=== PATIENT | female | born 1990 | race African-American/Black ===

== ENCOUNTER 2018-03-19 18:39 | Observation (INO) | payer MEDICAID ==
[~2018-03-19] VITALS: Ht 167.6 cm; Wt 59.0 kg
[2018-03-19 20:30] LABS: CLARITY URINE TURBID (CLEAR); COLOR URINE YELLOW (YELLOW); KETONES URINE NEGATIVE (NEGATIVE); LEUKOCYTE ESTERASE URINE NEGATIVE (NEGATIVE); NITRITE URINE NEGATIVE (NEGATIVE); OCCULT BLOOD URINE NEGATIVE (NEGATIVE); PROTEIN URINE NEGATIVE (NEGATIVE); SPECIFIC GRAVITY URINE 1.017 (1.005-1.030)
[2018-03-19] MEDS ORDERED: ACETAMINOPHEN 500MG TABLET PO NR (21:23)
[2018-03-19] MEDS ORDERED: FOLI-43 PO (21:43)
[2018-03-19] MEDS ORDERED: PNV1TABL50 PO (21:43)
[2018-03-19] MEDS ORDERED: FERR325T23 GT (21:43)
== END 2018-03-19 22:00 | disposition home or self-care (01) ==
LOC: L&D 18:39
PROVIDERS: ADMIT Obstetrics & Gynecology; ATTEND Obstetrics & Gynecology
DX: O26.892 Other specified pregnancy related conditions, second trimester (principal); R10.30 Lower abdominal pain, unspecified; M54.9 Dorsalgia, unspecified; Z3A.25 25 weeks gestation of pregnancy
CPT/HCPCS: 81003; 99281; G0378

== ENCOUNTER 2018-06-16 11:24 | Inpatient (IN) | payer MEDICAID ==
[~2018-06-16] VITALS: Ht 170.2 cm; Wt 2.9 kg
[~2018-06-16 11:24] MED LIST: FERR325T23 GT; FOLI-43 PO; PNV1TABL50 PO
[2018-06-16] MEDS ORDERED: DEXT 5%/LR + PITOCIN 20UNITS/L 1,000 ML IV SCH ×2 (11:48→21:22)
[2018-06-16] MEDS ORDERED: METHYLERGONOVINE MALEATE 0.2 MG/ML IM PRN (12:00)
[2018-06-16] MEDS ORDERED: PENICILLIN G POTASSIUM 5 MMU in DEXT 5% WATER 100 ML IV SCH (12:00)
[2018-06-16] MEDS ORDERED: NALOXONE HCL 0.4 MG/ML 1ML VIAL IM PRN (12:00)
[2018-06-16] MEDS ORDERED: CARBOPROST TROMETHAMINE 250 MCG/ML AMPUL IM PRN (12:00)
[2018-06-16] MEDS ORDERED: LIDOCAINE HCL 1% 20ML VIAL (Pyxis) INJ INFIL SCH (12:00)
[2018-06-16 12:37] LABS: HEMATOCRIT. 30.4 % (36.0-48.0); HEMOGLOBIN. 10.1 g/dL (12.0-16.0); MEAN CORPUSCULAR HEMOGLOBIN 27.8 pg (28.0-32.0); MEAN CORPUSCULAR VOLUME 83.6 fL (81.0-99.0); MEAN PLATELET VOLUME 9.1 fl (7.4-10.4); PLATELET 177 x1000/uL (130-400); RED BLOOD CELL COUNT 3.64 mill/uL (4.2-5.4); RED CELL DISTRIBUTION WIDTH 13.8 % (11.6-14.6)
[2018-06-16 12:46] LABS: INR 0.9; PARTIAL THROMBOPLASTIN TIME 26.2 sec (23.4-31.0); PROTHROMBIN TIME 9.4 sec (9.1-11.1)
[2018-06-16] MEDS: LACTATED RINGERS 1,000 ML IV SCH ×2 (12:49→17:24)
[2018-06-16 13:00] LABS: PLATELET ESTIMATE NORMAL
[2018-06-16 13:03] LABS: CHLORIDE 108 mEq/L (98-107)
[2018-06-16 13:08] LABS: CLARITY URINE CLEAR (CLEAR); COLOR URINE YELLOW (YELLOW); KETONES URINE NEGATIVE (NEGATIVE); LEUKOCYTE ESTERASE URINE 2+ (NEGATIVE); NITRITE URINE NEGATIVE (NEGATIVE); OCCULT BLOOD URINE TRACE (NEGATIVE); PH URINE 6.5 (4.5-8.0); PROTEIN URINE NEGATIVE (NEGATIVE); SPECIFIC GRAVITY URINE 1.018 (1.005-1.030)
[2018-06-16 13:44] LABS: *AMPHETAMINES SCREEN URINE NEGATIVE (NEGATIVE)
[2018-06-16 13:45] LABS: *BARBITURATES SCREEN URINE NEGATIVE (NEGATIVE); *BENZODIAZEPINES SCREEN URINE NEGATIVE (NEGATIVE); *COCAINE SCREEN URINE NEGATIVE (NEGATIVE); METHADONE URINE SCREEN NEGATIVE (NEGATIVE); OPIATES URINE SCREEN NEGATIVE (NEGATIVE); PHENCYCLIDINE URINE SCREEN NEGATIVE (NEGATIVE)
[2018-06-16 13:46] LABS: CANNABINOID URINE SCREEN NEGATIVE (NEGATIVE)
[2018-06-16 14:06] LABS: HEPATITIS B SURFACE ANTIGEN NEGATIVE
[2018-06-16] MEDS ORDERED: PENICILLIN G POTASSIUM 2.5 MMU in DEXTROSE 5% WATER 50 ML IV SCH (16:00)
[2018-06-16] MEDS: BUTORPHANOL TARTRATE 2 MG/ML VIAL IV PRN ×2 (17:09→20:14)
[2018-06-16] MEDS ORDERED: BISACODYL 10MG SUPP PR PRN (21:30)
[2018-06-16] MEDS ORDERED: IBUPROFEN 400MG TABLET PO PRN (21:30)
[2018-06-16] MEDS ORDERED: GLYCERIN/WITCH HAZEL LEAF MEDICATED PAD TOP PRN (21:30)
[2018-06-16] MEDS ORDERED: OXYCODONE HCL/ACETAMINOPHEN 5/325MG TABLET PO PRN (21:30)
[2018-06-16] MEDS ORDERED: DIPHENHYDRAMINE 25MG CAPSULE PO PRN (21:30)
[2018-06-16] MEDS ORDERED: HEMORRHOIDAL SUPP PR PRN (21:30)
[2018-06-16] MEDS ORDERED: RHO(D) IMMUNE GLOBULIN 300 MCG/SYR IM PRN (21:30)
[2018-06-16 23:00] VITALS: BP 117/54
[2018-06-16 23:30] VITALS: BP 107/68
[2018-06-17] VITALS: BP 110/68
[2018-06-17 03:07] VITALS: BP 113/74
[2018-06-17] MEDS: BENZOCAINE/LANOLIN/ALOE VERA SPRAY TOP PRN (03:11)
[2018-06-17] MEDS: ACETAMINOPHEN WITH CODEINE 300/30MG TABLET PO PRN ×2 (03:11→18:42)
[2018-06-17] MEDS ORDERED: SIMETHICONE 80MG TABLET CHEW PO SCH (08:00)
[2018-06-17 08:30] VITALS: BP 108/82
[2018-06-17] MEDS ORDERED: PRENATAL VIT/FE FUMARATE/FA TABLET PO SCH (09:00)
[2018-06-17 09:26] LABS: BASOPHILS % 0.3 % (0.0-2.0); EOSINOPHILS % 0.3 % (0.0-5.0); HEMATOCRIT. 29.3 % (36.0-48.0); HEMOGLOBIN. 9.9 g/dL (12.0-16.0); LYMPHOCYTES % 15.7 % (20.0-50.0); MEAN CORPUSCULAR HEMOGLOBIN 28.4 pg (28.0-32.0); MEAN CORPUSCULAR VOLUME 83.6 fL (81.0-99.0); MONOCYTES % 7.6 % (2.0-8.0); NEUTROPHILS % 76.1 % (40.0-76.0); PLATELET 154 x1000/uL (130-400); RED CELL DISTRIBUTION WIDTH 13.5 % (11.6-14.6)
[2018-06-17] MEDS ORDERED: MEASLES,MUMPS&RUBELLA VACCINE 1 VIAL SUBCUT ONE (16:00)
[2018-06-17] MEDS ORDERED: MEDROXYPROGESTERONE ACETATE 150MG/ML VIAL IM NR (17:00)
[2018-06-17 17:36] VITALS: BP 117/75
[2018-06-17] MEDS ORDERED: DOCUSATE SODIUM 100MG CAPSULE PO SCH (21:00)
[2018-06-17 21:45] VITALS: BP 109/70
[2018-06-18 04:00] VITALS: BP 108/70
[2018-06-18] MEDS: ACETAMINOPHEN WITH CODEINE 300/30MG TABLET PO PRN ×2 (04:31→11:12)
[2018-06-18 08:15] VITALS: BP 101/70
[2018-06-18 11:12] VITALS: BP 101/70
[2018-06-18] MEDS: BENZOCAINE/LANOLIN/ALOE VERA SPRAY TOP PRN (11:51)
== END 2018-06-18 12:10 | disposition home or self-care (01) | DRG 542 ==
LOC: L&D 11:24 → OBSVTOIN 11:24 → 8 EST LDRP 11:46 → 8EST 23:00
PROVIDERS: ADMIT Obstetrics & Gynecology; ATTEND Obstetrics & Gynecology
PROC: 10E0XZZ Delivery of Products of Conception, External Approach (ICD-10-PCS; principal; 2018-06-16)
PROC: 0DQR0ZZ Repair Anal Sphincter, Open Approach (ICD-10-PCS; 2018-06-16)
PROC: 3E0R3BZ Introduction of Anesthetic Agent into Spinal Canal, Percutaneous Approach (ICD-10-PCS; 2018-06-16)
PROC: 00HU33Z Insertion of Infusion Device into Spinal Canal, Percutaneous Approach (ICD-10-PCS; 2018-06-16)
DX: O70.20 Third degree perineal laceration during delivery, unspecified (principal); D64.9 Anemia, unspecified; Z37.0 Single live birth; Z3A.40 40 weeks gestation of pregnancy; O90.81 Anemia of the puerperium
CPT/HCPCS: 36415; 76805; 80305; 86592; 86703; 86762; 86850; 86900; 87340; 90707; 99281; J0595; J1050; J2310; J2540; J2590; J3490; J7060; J7120

== ENCOUNTER 2019-02-20 17:13 | Emergency (ER) | payer MEDICAID ==
[~2019-02-20] VITALS: Ht 170.2 cm; Wt 67.0 kg
[2019-02-20 19:09] LABS: BASOPHILS % 0.2 % (0.0-2.0); HEMATOCRIT. 33.8 % (36.0-48.0); HEMOGLOBIN. 11.6 g/dL (12.0-16.0); LYMPHOCYTES % 20.2 % (20.0-50.0); MEAN CORPUSCULAR HEMOGLOBIN 28.6 pg (28.0-32.0); MEAN CORPUSCULAR VOLUME 83.1 fL (81.0-99.0); MEAN PLATELET VOLUME 8.8 fl (7.4-10.4); MONOCYTES % 7.1 % (2.0-8.0); NEUTROPHILS % 71.5 % (40.0-76.0); PLATELET 215 x1000/uL (130-400); RED BLOOD CELL COUNT 4.07 mill/uL (4.2-5.4); RED CELL DISTRIBUTION WIDTH 14.8 % (11.6-14.6)
[2019-02-20 19:10] LABS: CLARITY URINE CLEAR (CLEAR); COLOR URINE YELLOW (YELLOW); KETONES URINE TRACE (NEGATIVE); LEUKOCYTE ESTERASE URINE 2+ (NEGATIVE); NITRITE URINE NEGATIVE (NEGATIVE); OCCULT BLOOD URINE NEGATIVE (NEGATIVE); PROTEIN URINE NEGATIVE (NEGATIVE); SPECIFIC GRAVITY URINE 1.033 (1.005-1.030)
[2019-02-20 19:12] LABS: CHLORIDE 104 mEq/L (98-107)
[2019-02-20 19:35] LABS: B-HCG QUANTITATIVE 24171 mIU/mL (<3)
[2019-02-20] MEDS ORDERED: POTASSIUM CHLORIDE 20MEQ TABLET SR PO ONE (20:00)
[2019-02-20] MEDS ORDERED: NITROFURANTOIN 100MG M/M CAPSULE PO ONE (20:00)
[2019-02-20 21:30] VITALS: BP 101/63
[2019-02-20] MEDS ORDERED: ACETAMINOPHEN 325MG TABLET PO ONE (21:45)
== END 2019-02-20 21:52 | disposition home or self-care (01) ==
LOC: ER 17:13
DX: O20.0 Threatened abortion (principal); O23.12 Infections of bladder in pregnancy, second trimester; O99.012 Anemia complicating pregnancy, second trimester; D64.9 Anemia, unspecified; O26.892 Other specified pregnancy related conditions, second trimester; E87.6 Hypokalemia; Z3A.19 19 weeks gestation of pregnancy
CPT/HCPCS: 36415; 76830; 76856; 81003; 81025; 84702; 86850; 86900; 99284

== ENCOUNTER 2019-04-21 11:52 | Observation (INO) | payer MEDICAID ==
[~2019-04-21] VITALS: Ht 170.2 cm; Wt 69.9 kg
[2019-04-21 12:23] LABS: CLARITY URINE CLEAR (CLEAR); COLOR URINE YELLOW (YELLOW); KETONES URINE NEGATIVE (NEGATIVE); LEUKOCYTE ESTERASE URINE 2+ (NEGATIVE); NITRITE URINE NEGATIVE (NEGATIVE); OCCULT BLOOD URINE NEGATIVE (NEGATIVE); PROTEIN URINE NEGATIVE (NEGATIVE); SPECIFIC GRAVITY URINE 1.007 (1.005-1.030); UROBILINOGEN URINE 0.2 E.U./dL (0.2-1.0)
== END 2019-04-21 14:40 | disposition home or self-care (01) ==
LOC: 8 EST LDRP 11:52
PROVIDERS: ADMIT Obstetrics & Gynecology; ATTEND Obstetrics & Gynecology
DX: O26.893 Other specified pregnancy related conditions, third trimester (principal); R10.9 Unspecified abdominal pain; Z3A.30 30 weeks gestation of pregnancy
CPT/HCPCS: 76805; 76818; 81003; 99281; G0378

== ENCOUNTER 2019-05-04 23:07 | Inpatient (IN) | payer MEDICAID ==
[~2019-05-04] VITALS: Ht 170.2 cm; Wt 69.9 kg
[2019-05-04] MEDS ORDERED: MAGNESIUM 20 G PREMIX (L & D) 500 ML IV SCH (23:30)
[2019-05-04] MEDS: LACTATED RINGERS 1,000 ML IV SCH (23:45)
[2019-05-04] MEDS ORDERED: AMPICILLIN 2,000 MG in SODIUM CHLORIDE 0.9% 100 ML IV NR (23:45)
[2019-05-04] MEDS ORDERED: BETAMETHASONE ACET/BETAMET 30 MG/5 ML VIAL IM ONE (23:45)
[2019-05-05] MEDS: MAGNESIUM 4 G PREMIX 100 ML IV NR ×3 (00:32→01:47)
[2019-05-05] MEDS: MAGNESIUM SULFATE 20 GM in DEXT 5% WATER 460 ML IV SCH ×3 (00:32→23:19)
[2019-05-05 01:22] LABS: BASOPHILS % 0.2 % (0.0-2.0); EOSINOPHILS % 0.3 % (0.0-5.0); HEMATOCRIT. 28.7 % (36.0-48.0); LYMPHOCYTES % 36.2 % (20.0-50.0); MEAN CORPUSCULAR HEMOGLOBIN 28.1 pg (28.0-32.0); MEAN CORPUSCULAR VOLUME 80.9 fL (81.0-99.0); MEAN PLATELET VOLUME 8.1 fl (7.4-10.4); NEUTROPHILS % 56.3 % (40.0-76.0); PLATELET 258 x1000/uL (130-400); RED BLOOD CELL COUNT 3.55 mill/uL (4.2-5.4); RED CELL DISTRIBUTION WIDTH 13.1 % (11.6-14.6)
[2019-05-05 01:23] LABS: CHLORIDE 109 mEq/L (98-107)
[2019-05-05 01:26] LABS: INR 0.9; PARTIAL THROMBOPLASTIN TIME 27.5 sec (23.4-31.0); PROTHROMBIN TIME 9.7 sec (9.6-11.0)
[2019-05-05 01:31] LABS: CLARITY URINE CLEAR (CLEAR); COLOR URINE YELLOW (YELLOW); KETONES URINE NEGATIVE (NEGATIVE); LEUKOCYTE ESTERASE URINE NEGATIVE (NEGATIVE); NITRITE URINE NEGATIVE (NEGATIVE); OCCULT BLOOD URINE NEGATIVE (NEGATIVE); PROTEIN URINE NEGATIVE (NEGATIVE); SPECIFIC GRAVITY URINE 1.025 (1.005-1.030)
[2019-05-05] MEDS: LACTATED RINGERS 1,000 ML IV SCH (01:42)
[2019-05-05 02:04] LABS: *BARBITURATES SCREEN URINE NEGATIVE (NEGATIVE); *BENZODIAZEPINES SCREEN URINE NEGATIVE (NEGATIVE); *COCAINE SCREEN URINE NEGATIVE (NEGATIVE)
[2019-05-05 02:05] LABS: *AMPHETAMINES SCREEN URINE NEGATIVE (NEGATIVE); CANNABINOID URINE SCREEN NEGATIVE (NEGATIVE); METHADONE URINE SCREEN NEGATIVE (NEGATIVE); OPIATES URINE SCREEN NEGATIVE (NEGATIVE); PHENCYCLIDINE URINE SCREEN NEGATIVE (NEGATIVE)
[2019-05-05 02:36] LABS: HEPATITIS B SURFACE ANTIGEN NEGATIVE
[2019-05-05] MEDS: AMPICILLIN 2,000 MG in SODIUM CHLORIDE 0.9% 100 ML IV SCH ×3 (06:27→18:36)
[2019-05-06] MEDS ORDERED: BETAMETHASONE ACET/BETAMET 30 MG/5 ML VIAL IM NR (00:15)
[2019-05-06] MEDS: AMPICILLIN 2,000 MG in SODIUM CHLORIDE 0.9% 100 ML IV SCH ×2 (01:12→07:13)
[2019-07-14] MEDS ORDERED: IBUP-2030 PO (06:30)
== END 2019-05-06 11:30 | disposition home or self-care (01) | DRG 563 ==
LOC: OBSVTOIN 23:07 → 8 EST LDRP 23:07
PROVIDERS: ADMIT Obstetrics & Gynecology; ATTEND Obstetrics & Gynecology
DX: O60.03 Preterm labor without delivery, third trimester (principal); Z3A.29 29 weeks gestation of pregnancy
CPT/HCPCS: 36415; 80053; 80305; 81003; 83735; 85025; 86592; 86703; 86762; 86850; 86900; 87340; 96360; 96372; 99281; G0378; J0290; J0702; J3475; J7050; J7060; J7120; A4315

== ENCOUNTER 2019-05-11 09:10 | Observation (INO) | payer MEDICAID ==
[~2019-05-11] VITALS: Ht 170.2 cm; Wt 68.9 kg
[2019-05-11] MEDS ORDERED: LACTATED RINGERS 1,000 ML IV SCH (09:30)
[2019-05-11] MEDS ORDERED: PNV1TABL76 MT (11:30)
== END 2019-05-11 12:00 | disposition home or self-care (01) ==
LOC: 8 EST LDRP 09:10
PROVIDERS: ADMIT Obstetrics & Gynecology; ATTEND Obstetrics & Gynecology
DX: O62.9 Abnormality of forces of labor, unspecified (principal); Z3A.30 30 weeks gestation of pregnancy
CPT/HCPCS: 99281; G0378; 96360; 96361

== ENCOUNTER 2019-05-13 14:04 | Observation (INO) | payer MEDICAID ==
[~2019-05-13] VITALS: Ht 170.2 cm; Wt 69.4 kg
[~2019-05-13 14:04] MED LIST changes: -FERR325T23 GT; -FOLI-43 PO; -PNV1TABL50 PO; +PNV1TABL76 MT
[2019-05-13 15:58] LABS: CHLORIDE 107 mEq/L (98-107)
== END 2019-05-13 17:30 | disposition home or self-care (01) ==
LOC: 8 EST LDRP 14:04
PROVIDERS: ADMIT Obstetrics & Gynecology; ATTEND Obstetrics & Gynecology
DX: O62.9 Abnormality of forces of labor, unspecified (principal); Z3A.30 30 weeks gestation of pregnancy
CPT/HCPCS: 36415; 80048; 99281; G0378

== ENCOUNTER 2019-06-26 10:04 | Observation (INO) | payer MEDICAID ==
[~2019-06-26] VITALS: Ht 170.2 cm; Wt 72.6 kg
[2019-06-26] MEDS ORDERED: LACTATED RINGERS 1,000 ML IV SCH (10:30)
[2019-06-26 11:05] LABS: CLARITY URINE CLEAR (CLEAR); COLOR URINE YELLOW (YELLOW); KETONES URINE NEGATIVE (NEGATIVE); LEUKOCYTE ESTERASE URINE 1+ (NEGATIVE); NITRITE URINE NEGATIVE (NEGATIVE); OCCULT BLOOD URINE NEGATIVE (NEGATIVE); PROTEIN URINE NEGATIVE (NEGATIVE); SPECIFIC GRAVITY URINE 1.012 (1.005-1.030)
== END 2019-06-26 13:30 | disposition home or self-care (01) ==
LOC: 8 EST LDRP 10:04
PROVIDERS: ADMIT Obstetrics & Gynecology; ATTEND Obstetrics & Gynecology
DX: O26.893 Other specified pregnancy related conditions, third trimester (principal); R10.30 Lower abdominal pain, unspecified; R10.2 Pelvic and perineal pain; Z3A.37 37 weeks gestation of pregnancy
CPT/HCPCS: 76815; 76818; 81003; 99281; G0378; 96360; 96361

== ENCOUNTER 2019-07-12 00:15 | Inpatient (IN) | payer MEDICAID ==
[~2019-07-12] VITALS: Ht 170.2 cm; Wt 74.4 kg
[2019-07-12] MEDS ORDERED: LACTATED RINGERS 1,000 ML IV SCH (00:33)
[2019-07-12] MEDS ORDERED: LIDOCAINE HCL 1% 20ML VIAL (Pyxis) INJ INFIL SCH (00:45)
[2019-07-12] MEDS ORDERED: BUTORPHANOL TARTRATE 2 MG/ML VIAL IV PRN (00:45)
[2019-07-12] MEDS ORDERED: MISOPROSTOL 100MCG TABLET VG SCH (00:45)
[2019-07-12] MEDS ORDERED: DEXT 5%/LR + PITOCIN 20UNITS/L 1,000 ML IV SCH ×2 (01:00→03:00)
[2019-07-12] MEDS ORDERED: PENICILLIN G POTASSIUM 5 MMU in DEXT 5% WATER 100 ML IV SCH (01:00)
[2019-07-12 01:10] LABS: INR 0.9; PARTIAL THROMBOPLASTIN TIME 21.5 sec (23.4-31.0); PROTHROMBIN TIME 9.5 sec (9.6-11.0)
[2019-07-12 01:36] LABS: HEPATITIS B SURFACE ANTIGEN NEGATIVE
[2019-07-12 01:50] LABS: CLARITY URINE CLOUDY (CLEAR); COLOR URINE YELLOW (YELLOW); KETONES URINE NEGATIVE (NEGATIVE); LEUKOCYTE ESTERASE URINE 1+ (NEGATIVE); NITRITE URINE NEGATIVE (NEGATIVE); OCCULT BLOOD URINE 2+ (NEGATIVE); PH URINE 6.5 (4.5-8.0); PROTEIN URINE 1+ (NEGATIVE); SPECIFIC GRAVITY URINE 1.022 (1.005-1.030)
[2019-07-12 02:03] LABS: METHADONE URINE SCREEN NEGATIVE (NEGATIVE); OPIATES URINE SCREEN NEGATIVE (NEGATIVE)
[2019-07-12 02:04] LABS: *AMPHETAMINES SCREEN URINE NEGATIVE (NEGATIVE); *BARBITURATES SCREEN URINE NEGATIVE (NEGATIVE); *BENZODIAZEPINES SCREEN URINE NEGATIVE (NEGATIVE); *COCAINE SCREEN URINE NEGATIVE (NEGATIVE); CANNABINOID URINE SCREEN NEGATIVE (NEGATIVE); PHENCYCLIDINE URINE SCREEN NEGATIVE (NEGATIVE)
[2019-07-12] MEDS ORDERED: LANOLIN OINT 7GM TUBE TOP PRN (02:30)
[2019-07-12] MEDS ORDERED: ACETAMINOPHEN WITH CODEINE 300/30MG TABLET PO PRN (02:30)
[2019-07-12] MEDS ORDERED: HEMORRHOIDAL SUPP PR PRN (02:30)
[2019-07-12] MEDS ORDERED: GLYCERIN/WITCH HAZEL LEAF MEDICATED PAD TOP PRN (02:30)
[2019-07-12] MEDS ORDERED: BENZOCAINE/LANOLIN/ALOE VERA SPRAY TOP PRN (02:30)
[2019-07-12] MEDS ORDERED: BISACODYL 10MG SUPP PR PRN (02:30)
[2019-07-12] MEDS ORDERED: IBUPROFEN 400MG TABLET PO PRN (02:30)
[2019-07-12] MEDS ORDERED: DIPHENHYDRAMINE 25MG CAPSULE PO PRN (02:30)
[2019-07-12 04:20] VITALS: BP 116/76
[2019-07-12] MEDS ORDERED: PENICILLIN G POTASSIUM 2.5 MMU in DEXTROSE 5% WATER 50 ML IV SCH (06:00)
[2019-07-12] MEDS ORDERED: MEASLES,MUMPS&RUBELLA VACCINE 1 VIAL SUBCUT ONE (06:45)
[2019-07-12 07:31] VITALS: BP 103/63
[2019-07-12] MEDS: PRENATAL VIT/FE FUMARATE/FA TABLET PO SCH (08:22)
[2019-07-12] MEDS: IBUPROFEN 800MG TABLET PO PRN ×2 (08:23→17:26)
[2019-07-12 16:05] VITALS: BP 94/56
[2019-07-12] MEDS: DOCUSATE SODIUM 100MG CAPSULE PO SCH (20:47)
[2019-07-12 22:00] VITALS: BP 101/61
[2019-07-13 04:40] VITALS: BP 110/68
[2019-07-13 06:43] LABS: BASOPHILS % 0.3 % (0.0-2.0); HEMATOCRIT. 28.4 % (36.0-48.0); HEMOGLOBIN. 9.6 g/dL (12.0-16.0); LYMPHOCYTES % 22.9 % (20.0-50.0); MEAN CORPUSCULAR VOLUME 80.1 fL (81.0-99.0); MEAN PLATELET VOLUME 8.9 fl (7.4-10.4); NEUTROPHILS % 70.8 % (40.0-76.0); PLATELET 166 x1000/uL (130-400); RED BLOOD CELL COUNT 3.54 mill/uL (4.2-5.4); RED CELL DISTRIBUTION WIDTH 14.2 % (11.6-14.6)
[2019-07-13 07:39] VITALS: BP 99/62
[2019-07-13] MEDS: PRENATAL VIT/FE FUMARATE/FA TABLET PO SCH (08:00)
[2019-07-13] MEDS: IBUPROFEN 800MG TABLET PO PRN ×2 (08:00→14:57)
[2019-07-13] MEDS: FERROUS SULFATE 325MG TABLET PO SCH ×3 (08:01→17:53)
[2019-07-13] MEDS ORDERED: INFLUENZA VIRUS VACCINE(AFLURIA) 0.5ML SYR IM ONE (09:00)
[2019-07-13] MEDS ORDERED: TETANUS, DIPHTHERIA, PERTUSSIS VAC/PF 0.5ML (>7YR OLD) IM ONE (10:00)
[2019-07-13 15:54] VITALS: BP 99/60
[2019-07-13] MEDS: DOCUSATE SODIUM 100MG CAPSULE PO SCH (21:14)
[2019-07-13 22:00] VITALS: BP 106/70
[2019-07-14] MEDS ORDERED: IBUP-2030 PO (06:30)
[2019-07-14 08:39] VITALS: BP 106/70
[2019-07-14] MEDS: FERROUS SULFATE 325MG TABLET PO SCH (08:39)
[2019-07-14] MEDS: PRENATAL VIT/FE FUMARATE/FA TABLET PO SCH (08:39)
[2019-07-14] MEDS: IBUPROFEN 800MG TABLET PO PRN (08:39)
== END 2019-07-14 13:45 | disposition home or self-care (01) | DRG 560 ==
LOC: OBSVTOIN 00:15 → 8 EST LDRP 00:15 → 8EST 07:20
PROVIDERS: ADMIT Specialist; ATTEND Specialist
PROC: 10E0XZZ Delivery of Products of Conception, External Approach (ICD-10-PCS; principal; 2019-07-12)
DX: O48.0 Post-term pregnancy (principal); Z37.0 Single live birth; Z3A.41 41 weeks gestation of pregnancy
CPT/HCPCS: 36415; 80305; 81003; 85025; 86592; 86703; 86762; 86850; 86900; 87340; 90686; 90707; 90715; 99281; G0378; J2540; J2590; J7060